=== PATIENT | female | born 1965 | race Caucasian/White ===

== ENCOUNTER 2016-08-19 16:24 | Inpatient (IN) | payer OTHER, BC ==
[~2016-08-19] VITALS: Ht 188 cm; Wt 87.5 kg
[2016-08-19 20:00] VITALS: BP 141/95
[2016-08-19 20:11] LABS: *URINE HCG, QUAL NEGATIVE
[2016-08-19 20:17] LABS: *AMPHETAMINE, URINE NEGATIVE (NEGATIVE); *BARBITURATE, URINE NEGATIVE (NEGATIVE); *CANNABINOID, URINE NEGATIVE (NEGATIVE); *COCCAINE, URINE NEGATIVE (NEGATIVE); *OPIATE, URINE NEGATIVE (NEGATIVE); *PHENCYCLIDINE SCREEN,URINE NEGATIVE (NEGATIVE)
[2016-08-19] MEDS ORDERED: MAG HYDROX/AL HYDROX/SIMETH 30 ML LIQUID UDC PO PRN (20:30)
[2016-08-19] MEDS ORDERED: ACETAMINOPHEN 325 MG TABLET PO PRN (20:30)
[2016-08-19] MEDS ORDERED: LORAZEPAM 1 MG TABLET PO PRN ×2 (20:30)
[2016-08-19] MEDS ORDERED: LOPERAMIDE HCL 2 MG CAPSULE PO PRN ×2 (20:30)
[2016-08-19] MEDS ORDERED: MAGNESIUM HYDROXIDE 30 ML LIQUID UDC PO PRN (20:30)
[2016-08-19] MEDS ORDERED: THIAMINE HCL 200 MG/2 ML VIAL IM ONE (20:30)
[2016-08-19] MEDS ORDERED: IBUPROFEN 400 MG TABLET PO PRN (20:30)
[2016-08-19] MEDS ORDERED: DICYCLOMINE HCL 20 MG TABLET PO PRN (20:30)
[2016-08-19] MEDS ORDERED: ONDANSETRON ODT 4 MG TAB.RAPDIS SL PRN (20:30)
[2016-08-19] MEDS ORDERED: LORAZEPAM 2 MG/1 ML VIAL IM PRN (20:30)
--- NOTE | 2016-08-19 20:30 | NUR ---
ADMISSION NOTE Pt is 51 year old male, admitted to [facility] 3rd floor on 08/19/16 at 1940. Skin and body check done in rm 317, no contraband found, skin intact. Urine collected and sent to lab for drug screen, as ordered. Pt alert, awake, oriented x 3; pt ambulatory with steady gait. Pt is a primary source of information. Pt reports NKA, NKFA. Pt repots his PCP is Dr Frank Reynoso, [place], [place]. Pt reports being admitted to ER in Jun 2016 for ETOH intoxication. Pt reports PMH of: (1) hypothyroidism - was diagnosed in 2002; (2) GERD - diagnosed in 2000; (3) IBS - diagnosed in 2000; (4) depression - diagnosed in 2005; (5) insomnia - diagnosed in 2005 . Past surgical hx - left shoulder repair surgery and C5-C6 reconstruction in 2011 (d/t chronic pain). Pt reported taking the following medications in home: 1. Synthroid -137 mcg - 1 tab daily PO, last taken 08/19/16 2. Spironolactone 50 mg - 1 tab daily PO, last taken 08/19/16 3. Nexium 22.3 mg - pt takes PRN, last taken 08/19/16 4. Aleve 220 mg - pt takes PRN for headache, unknown date of last intake 5. Loratadine 10 mg - pt takes prn for allergies, unknown date of last intake 6.Hydroco/APAP 10-325 - per pt, she took it "years ago" for shoulder pain 7. Oxycodone-APAP 5/325 - per pt, she took it "years ago" for shoulder pain 8. Daytime old and Flu (APAP 325mg, Dextromethorphan 10 mg/ Phenylephrine 5 mg) - pt takes prn for flu/ common cold, unknown date of last intake 9. Omeprazole 20.6 mg - pt takes PRN for GERD, unknown date of last intake 10. Ibuprofen 200 mg - pt takes prn for pain, unknown date of last intake 11. Systane eyedrops - pt takes prn for dry eyes, unknown date of last use 12. Neosporin oin - pt uses prn for skin abrasions, unknown date of last use. Per pt, he got admitted for ETOH dependence: 1. ETOH (wine) - pt reports she started to drink occasionally at age 15, reports "heavy" drinking from age 26; pt had multiple attempts to stay sober, relapsed on daily drinking in 2015; reports drinking 2-3 750 ml of wine daily, last drink on 08/19/16, 2 bottles of wine. Pt denies smoking tobacco or using other substances. Pt denies previous rehab/ detox admissions. Longest period of sobriety 5 years from [id number]. Pt presents aaox3, cooperative; is primary source of information, speech slugger, noted strong ETOH breath odor, yet information consistent. Denies SI/HI. Skin intact, warm, barely sweaty. Pt reports mild anxiety, educated on relaxation techniques, reports mild 2/10 headache. No tremors noted, pt denies tingling/ itching. CIWA score 4. Skin intact, warm. All extremities with full ROM. No SOB noted. Heart rate regular, no murmurs, pt denies chest pain, Cap refill < 3 sec. No edema noted. Bowel sounds present x 4, last BM 08/19/16; pt denies n/v/d. No urinary difficulties reported. Pt denies hx of seizures VS; temp 98.5, HR 109, RR 16, SPO2 97, BP 141/95, Ht 6'2"", Wt 193 lb. Pt oriented to room and unit, provided demonstration of equipment. Side rails up x 2, call light within reach, bed locked in lowest position. Dr Jones notified, awaiting for orders. Addendum: 08/20/16 at 0500 by ISRAEL TIM RN pt also reports taking Ambien of unknown dose for sleep, last taken 08/18/16
[2016-08-19 21:41] LABS: BASOPHILS # (AUTO) 0.1 K/uL (0.0-0.2); BASOPHILS % (AUTO) 1.4 % (0.0-2.0); EOSINOPHILS # (AUTO) 0.1 K/uL (0.0-0.7); EOSINOPHILS % (AUTO) 1.4 % (0.0-7.0); HEMATOCRIT 46.3 % (40.0-50.0); HEMOGLOBIN 15.1 g/dL (14.0-18.0); LYMPHOCYTES # (AUTO) 1.9 K/uL (0.8-4.8); LYMPHOCYTES % (AUTO) 49.8 % (20.5-51.5); MEAN CORPUSCULAR HGB CONC 33 g/dL (32.0-37.0); MEAN CORPUSCULAR VOLUME 92.1 fL (82.0-92.0); MONOCYTES # (AUTO) 0.5 K/uL (0.1-1.30); MONOCYTES % (AUTO) 12.5 % (0.0-11.0); NEUTROPHILS # (AUTO) 1.4 K/uL (1.8-8.9); NEUTROPHILS % (AUTO) 34.9 % (38.5-71.5); PLATELET COUNT (AUTO) 232 K/uL (150-450); RED BLOOD CELL COUNT(AUTO) 5.03 MIL/uL (4.70-6.10); RED CELL DISTRIBUTION WIDTH 13.9 % (11.5-14.5)
[2016-08-19 22:01] LABS: HIV-1 p24 ANTIGEN NON REACTIVE (NONREACTIVE); HIV-1/2 ANTIBODY NON REACTIVE (NONREACTIVE)
[2016-08-19 22:07] LABS: ALBUMIN 4.5 g/dL (3.4-5.0); BAND % (MANUAL) 2 % (0-10); BASOPHILS % (MANUAL) 1 % (0-2); BILIRUBIN,TOTAL 0.4 mg/dL (0.2-1.0); CALCIUM 8.6 mg/dL (8.5-10.1); CREATININE 0.9 mg/dL (0.6-1.3); EOSINOPHILS % (MANUAL) 1 % (0-8); LYMPHOCYTES % (MANUAL) 47 % (20-40); MONOCYTES % (MANUAL) 10 % (2-10); NEUTROPHILS % (MANUAL) 39 % (42-75); PLATELET ESTIMATE ADEQUATE; POTASSIUM 4.3 mmol/L (3.5-5.1); TOTAL PROTEIN, SERUM 8.5 g/dL (6.4-8.2)
[2016-08-19 22:08] LABS: THYROID STIMULATING HORMONE 0.316 mIU/mL (0.358-3.740)
--- NOTE | 2016-08-19 22:20 | NUR ---
PRN ZOFRAN Pt c/o nausea/ Administered Zofran 4 mg ODT prn. Will continue to monitor
--- NOTE | 2016-08-19 22:50 | NUR ---
PRN ATIVAN Pt c/o anxiety. mild nausea, noted bilat hand tremor, sweats. CIWA = 8. Administered prn Ativan 1 mg PO. Safety precautions in place.
--- NOTE | 2016-08-19 23:45 | NUR ---
REASSESSMENT Pt states nausea improved, reports decrease in anxiety, tremors not observable, CIWA score = 4. Will continue to monitor
[2016-08-20] VITALS: BP 125/87
[2016-08-20] MEDS: diphenhydrAMINE 50 MG CAPSULE PO PRN (00:28)
--- NOTE | 2016-08-20 00:30 | NUR ---
PRN BENADRYL Pt c/o insomnia. Administered Benadryl 50 mg PO prn as ordered. Safety precautions in place, will continue to monitor
--- NOTE | 2016-08-20 01:30 | NUR ---
REASSESSMENT Pt resting with eyes closed, RR unlabored. Side rails up x 2, bed in lowest position, call light within reach.
[2016-08-20 04:00] VITALS: BP 128/72
[2016-08-20] MEDS ORDERED: IBUP200C48 PO (06:11)
[2016-08-20] MEDS ORDERED: OMEP20TA68 PO (06:11)
[2016-08-20] MEDS ORDERED: LORA10TA50 PO (06:11)
[2016-08-20] MEDS ORDERED: NAPR220C15 PO (06:11)
[2016-08-20] MEDS ORDERED: ESOM20CA PO (06:11)
[2016-08-20] MEDS ORDERED: D ME PO (06:11)
[2016-08-20] MEDS ORDERED: LEVO137T24 PO (06:11)
[2016-08-20] MEDS ORDERED: HYDR-3657 PO (06:11)
[2016-08-20] MEDS ORDERED: ZOLP5TAB2 PO (06:11)
[2016-08-20] MEDS ORDERED: OXYC-162 PO (06:11)
[2016-08-20] MEDS ORDERED: EYEL1TOW2 TP (06:11)
[2016-08-20] MEDS ORDERED: SPIR50TA3 PO (06:11)
[2016-08-20] MEDS ORDERED: HYDR28CR45 TP (06:11)
--- NOTE | 2016-08-20 07:19 | NUR ---
END OF SHIFT NOTE Pt is 51 y o female, admitted on 08/19/16 for ETOH dependence. Pt reported drinking 2-3 750 ml bottles of wine daily for 2 yrs. Upon admission CIWA was 2, by 2230, pt started to c/o nausea, anxiety, tremors, prn Zofran was given for nausea and Ativan 1 mg for CIWA score of 8. Both were effective, CIWA decreased to 4 in 1 hr after medication administration. Pt was compliant, cooperative. VSS. Last CIWA 2 at 0400. Pt received prn Benadryl for sleep at 0030, was effective, pt slept for 5 hrs. Skin intact. PMH of hypothyroidism, GERD, IBS, depression, insomnia. Pt full code, regular diet, NKA. Fall precautions in place. Report endorsed to day shift nurse.
--- NOTE | 2016-08-20 07:20 | NUR ---
Start of Shift Notes: Received patient awake, alert and verbally responsive. Able to make her needs known. Oriented x 4. Respirations even and unlabored. No SOB noted. Skin warm and dry to touch. Abdomen soft and non-distended. BS (+) in all 4 quadrants. No complains of constipation or abdominal discomfort noted. Mild nausea noted. Able to tolerate PO fluids. No diarrhea reported. Bladder non-distended. No complains of dysuria noted. Patient noted tremulous even with arms not extended. Noted with moderate anxiety, fidgety and with restlessness. Also noted with clammy skin related to sweats. Patient is a 51 year old female admitted for ETOh dependence who was placed on PRNs only at this time. Has past medical hx of IBS, deprsesion, insomnia, GERD and IBS. NKA. FULL CODE. Regular diet. On fall and seizure precautions. Educated patient on her current plan of care for the day. Requested for her AM meds to be given at this time despite education. Notified MD, per MD, OK to give. Encouraged oral fluid intake and encouraged group participation to learn new skills to prevent relapse. Will continue to monitor closely.
[2016-08-20] MEDS: THIAMINE HCL 100 MG TABLET PO SCH (07:28)
[2016-08-20] MEDS: FOLIC ACID 1 MG TABLET PO SCH (07:28)
[2016-08-20] MEDS: MULTIVITAMINS,THERAPEUTIC TABLET PO SCH (07:28)
--- NOTE | 2016-08-20 07:30 | NUR ---
Ativan 2 mg PO given and 0900 meds: Patient noted with CIWA 19. Noted with tremors even with arms not extended. Also noted with sweats, moderate anxiety and agitation. Pulse 100. BP 111/86. Patient requested for all her due meds to be give at this time. Notified MD. Per , krysta to give and monitor CIWA 1 hour after Ativan. Will continue to monitor closely.
[2016-08-20 08:00] VITALS: BP 111/86
--- NOTE | 2016-08-20 08:30 | NUR ---
Re-assessment: CIWA 14. Less tremors noted at rest, less agitation and less anxiety noted. Oral fluids encouraged. PRN Ativan 2 mg PO was effective in reducing her withdrawal symptoms.
[2016-08-20] MEDS ORDERED: TUBERCULIN,PURIF.PROT.DERIV. 5 TU/0.1 ML TEST ID ONE (09:00)
[2016-08-20] MEDS ORDERED: Medication Not On Formulary EA (Loratadine 10 MG) PO PRN (10:30)
[2016-08-20] MEDS ORDERED: HYDROCORTISONE 1% CREAM 30 GM TUBE TP PRN (10:30)
[2016-08-20] MEDS ORDERED: LORATADINE 10 MG TABLET PO PRN (10:45)
--- NOTE | 2016-08-20 10:56 | NUR ---
MD Visit: Dr. Jones in to see patient at this time. 5-day Ativan taper will be started today at 1300. Reported to MD patient's TSH of 0.316L. New orders received. MD reconciled patient's meds.
[2016-08-20 12:00] VITALS: BP 119/83
[2016-08-20] MEDS: LORAZEPAM 1 MG TABLET PO SCH ×3 (12:04→20:32)
[2016-08-20] MEDS: ESCITALOPRAM OXALATE 10 MG TABLET PO SCH (12:04)
[2016-08-20] MEDS: PANTOPRAZOLE SODIUM 40 MG TABLET.DR PO PRN (12:08)
--- NOTE | 2016-08-20 12:09 | NUR ---
Protonix 40 mg PO given: Patient noted with complains of heartburn. Offered Mylanta but refused. Medicated patient with Protonix 40 mg PO as ordered. Will monitor for effectiveness.
--- NOTE | 2016-08-20 13:08 | NUR ---
Re-assessment: Per patient, PRN Protonix was effective in relieving heartburn.
[2016-08-20] MEDS: GABAPENTIN 300 MG CAPSULE PO SCH ×2 (14:43→20:32)
[2016-08-20 16:00] VITALS: BP 119/81
--- NOTE | 2016-08-20 18:37 | NUR ---
End of Shift Notes: Patient is a 51 year old female admitted for ETOH dependence who was placed on a 5 day Ativan taper as ordered. No adverse reactions noted. Taper started today. Has past medical hx of hypothyroidism, GERD, IBS, insomnia and depression. Prior to admission, patient was using 2 to 3 bottles of 750cc wine daily x 2 years. VS monitored closely q 4 hours. No significant abnormalities noted. WIthdrawal symptoms were closely monitored. Initial CIWA 19 - patient presented with gross tremors, anxiety, sweating, agitation, fidgeting and restlessness. Medicated patient with Ativan 2 mg PO at 0730 due to CIWA 19 with help after 1 hour. Last CIWA 8. Per patient, Ativan has been helping her with her withdrawal symptoms. Patient was unable to participate in group and therapy sessions during the day. Compliant with care and treatment. All needs met and attended. Will continue to monitor closely.
--- NOTE | 2016-08-20 19:15 | NUR ---
Start of Shift Patient Received. Patient is in activities room participating in group meeting. Patient is a 51 year old female, admitted on 08/19/16 for ETOH Dependence, under the care of Dr. Jones, she is currently receiving a 5 day Ativan taper. Patient verbalizes no known allergies, wishes to be full code, following a regular diet, skin intact, on fall precautions. Patients past medical history of Gerd, IBS, Hypothyroidism, depression, and insomnia. Per endorsement, patient noted with a CIWA of 19 and given PRN Ativan 2mg for increased signs and symptoms. Patient continues on 5 day Ativan taper and is tolerating well. All needs attended to promptly. Will continue plan of care as ordered.
[2016-08-20 20:28] VITALS: BP 135/94
--- NOTE | 2016-08-20 21:00 | NUR ---
PRN Medication Administration Patient verbalizing increased heartburn. PRN Maalox given with routine medications. Will monitor for effectiveness.
--- NOTE | 2016-08-20 23:00 | NUR ---
PRN Medication Reassessment Patient able to verbalize heartburn subsided. PRN Maalox noted to be effective.
[2016-08-21 00:45] VITALS: BP 126/79
[2016-08-21 04:20] VITALS: BP 126/96
[2016-08-21] MEDS: LEVOTHYROXINE SODIUM 137 MCG TABLET PO SCH (06:20)
--- NOTE | 2016-08-21 07:05 | NUR ---
End of Shift Patient is in bed sleeping. Breathing even and non labored. No signs of pain or discomfort noted. Patient is a 51 year old female, admitted on 08/19/16 for ETOH Dependence, under the care of Dr. Jones, she is currently receiving a 5 day Ativan taper. Patient verbalizes no known allergies, wishes to be full code, following a regular diet, skin intact, on fall precautions. Patients past medical history of Eleuterio, IBS, Hypothyroidism, depression, and insomnia. Patient was given PRN Maalox for increased heartburn with medication noted to be effective. All needs attended to promptly. Will endorse to continue plan of care as ordered.
[2016-08-21 07:25] LABS: THYROID STIMULATING HORMONE 0.754 mIU/mL (0.358-3.740)
[2016-08-21 08:00] VITALS: BP 136/99
--- NOTE | 2016-08-21 08:00 | NUR ---
START OF SHIFT NOTE: REPORT RECEIVED FROM INFORMATICS ANALYST NURSE. PT IS A 51YO FEMALE ADMITTED ON 08/19/16 FOR MEDICALLY SUPERVISED WITHDRAWAL: PT REPORTS DRINKING 2-3 750ML BOTTLES OF WINE DAILY FOR 1 YEAR. PT IS ON DAY 2 OF A 5-DAY ATIVAN TAPER. LAST INFORMATICS ANALYST CIWA=8. PRN MAALOX WAS GIVEN THROUGHOUT THE NIGHT FOR GERD. PT IS ON REGULAR DIET. PT REPORTS PAST MED HX OF IBS, HYPOTHYROID, DEPRESSION, AND INSOMNIA. PT REPORTS NKA AND IS A FULL CODE. PT IS CURRENTLY IN BED AND REPORTS FATIGUE. ALL NEEDS ATTENDED AND MET AT THIS TIME. WILL CONTINUE TO MONITOR.
[2016-08-21 08:11] LABS: ALBUMIN 3.5 g/dL (3.4-5.0); BILIRUBIN,DIRECT 0.1 mg/dL (0.0-0.2); BILIRUBIN,TOTAL 0.7 mg/dL (0.2-1.0); TOTAL PROTEIN, SERUM 6.9 g/dL (6.4-8.2)
[2016-08-21] MEDS: ESCITALOPRAM OXALATE 10 MG TABLET PO SCH (09:44)
[2016-08-21] MEDS: SPIRONOLACTONE 50 MG TABLET PO SCH (09:44)
[2016-08-21] MEDS: LORAZEPAM 1 MG TABLET PO SCH ×3 (09:44→21:22)
[2016-08-21] MEDS: MULTIVITAMINS,THERAPEUTIC TABLET PO SCH (09:44)
[2016-08-21] MEDS: FOLIC ACID 1 MG TABLET PO SCH (09:44)
[2016-08-21] MEDS: GABAPENTIN 300 MG CAPSULE PO SCH ×3 (09:44→21:21)
[2016-08-21] MEDS: THIAMINE HCL 100 MG TABLET PO SCH (09:44)
[2016-08-21 12:00] VITALS: BP 132/93
[2016-08-21] MEDS: CLONIDINE HCL 0.1 MG TABLET PO PRN (14:28)
--- NOTE | 2016-08-21 14:28 | NUR ---
PRN Clonidine: Pt c/o anxiety and noted to be diaphoretic. Administered PRN Clonidine as ordered. Will continue to monitor.
--- NOTE | 2016-08-21 15:30 | NUR ---
Reassessment: Pt is in bed with eyes closed. Respirations are even and unlabored. No s/s of acute distress noted. PRN Clonidine effective. Will continue to monitor.
[2016-08-21 16:00] VITALS: BP 115/86
[2016-08-21] MEDS: HYDROXYZINE PAMOATE 25 MG CAPSULE PO PRN (18:14)
--- NOTE | 2016-08-21 18:15 | NUR ---
PRN Vistaril: Pt c/o increased anxiety. Administered PRN Vistaril as ordered. Will continue to monitor.
--- NOTE | 2016-08-21 19:15 | NUR ---
Start of Shift Patient Received. Patient is in activities room participating in group meeting. Patient is a 51 year old female, admitted on 08/19/16 for ETOH Dependence, under the care of Dr. Jones, and is currently receiving a 5 day Ativan taper. Patient verbalizes no known allergies, wishes to be full code, following a regular diet, skin intact, on fall precautions. Patients past medical history of Gerd, IBS, Hypothyroidism, depression, and insomnia. Per endorsement, patient was given PRN Vistaril and Clonidine with medication noted to be effective. All needs attended to promptly. Will continue plan of care as ordered.
--- NOTE | 2016-08-21 19:20 | NUR ---
Reassessment: Pt is in bed with eyes closed. Respirations are even and unlabored. No s/s of acute distress noted. PRN Vistaril effective. Pt endorsed to pad extractor tender nurse.
--- NOTE | 2016-08-21 19:34 | NUR ---
END OF SHIFT NOTE: PT IS A 51YO FEMALE ADMITTED TO [facility] ON 08/19/16 FOR MEDICALLY SUPERVISED WITHDRAWAL FROM ETOH. PT REPORTS DRINKING 2-3 750ML BOTTLES OF WINE DAILY FOR 1 YEAR. PT CONTINUES ON DAY 2 OF A 5-DAY ATIVAN TAPER. LAST CIWA=6; SCHEDULED ATIVAN TAPER EFFECTIVELY MANAGED S/S OF WITHDRAWAL, IN ADDITION TO PRN CLONIDINE AND PRN VISTARIL FOR ANXIETY. PT IS ON REGULAR DIET. PT REPORTS PAST MED HX OF IBS, HYPOTHYROID, DEPRESSION, AND INSOMNIA. PT REPORTS NKA AND IS A FULL CODE. PT CONSUMED 100% OF ALL MEALS, HAD INTAKE 2565ML, OUTPUT URINE X4 AND STOOL X1. PT ENDORSED TO FURNACE INSTALLER HELPER NURSE.
[2016-08-21 21:19] VITALS: BP 119/84
[2016-08-21] MEDS: PANTOPRAZOLE SODIUM 40 MG TABLET.DR PO PRN (21:22)
[2016-08-21] MEDS: diphenhydrAMINE 50 MG CAPSULE PO PRN (21:22)
--- NOTE | 2016-08-21 21:30 | NUR ---
PRN Medication Administration Patient verbalizing increase heartburn and inability of falling asleep. PRN Benadryl and Protonix administered with routine medications. Will continue to monitor for effectiveness.
--- NOTE | 2016-08-21 23:00 | NUR ---
PRN Medication Reassessment Patient noted in bed sleeping. Breathing even and non labored. No signs of pain or discomfort noted. PRN Benadryl and Protonix noted to be effective. Will continue to monitor.
--- NOTE | 2016-08-22 00:35 | NUR ---
Vitals and CIWA Patient refused 0000 vitals prior to bed. Patient states "I have a difficult time sleeping so if Im sleeping then Ill pass." Patient noted in bed sleeping. Breathing even and non labored. No signs of pain or discomfort noted. Patient respirations noted to be 16. CIWA not able to be completed as per order. Will continue to monitor. Addendum: 08/22/16 at 0235 by MIKHAIL GLEZ LVN Amended: Links added.
--- NOTE | 2016-08-22 04:15 | NUR ---
Vitals and CIWA Patient refused 0400 vitals prior to bed. Patient states "I have a difficult time sleeping so if Im sleeping then Ill pass." Patient noted in bed sleeping. Breathing even and non labored. No signs of pain or discomfort noted. Patient respirations noted to be 16. CIWA not able to be completed as per order. Will continue to monitor. Addendum: 08/22/16 at 0416 by MIKHAIL GLEZ LVN Amended: Links added.
[2016-08-22 05:24] VITALS: BP 131/101
[2016-08-22] MEDS: CLONIDINE HCL 0.1 MG TABLET PO PRN (05:25)
--- NOTE | 2016-08-22 05:34 | NUR ---
PRN Medication Administration Patient noted awake and verbalizing increased signs and symptoms of withdrawal including anxiety, sweats and chills. Patient also noted with a BP of 131/101. PRN Clonidine administered. Will continue to monitor for effectiveness.
--- NOTE | 2016-08-22 06:15 | NUR ---
PRN Medication Reassessment Vitals reassessed and BP noted 127/91. Patient able to verbalize "I feel better now." PRN Clonidine noted to be effective. Will continue to monitor.
[2016-08-22 06:18] VITALS: BP 127/91
[2016-08-22] MEDS: LEVOTHYROXINE SODIUM 137 MCG TABLET PO SCH (06:19)
--- NOTE | 2016-08-22 07:16 | NUR ---
End of Shift Patient is in bed awake, alert and verbally responsive. Breathing even and non labored. No signs of pain or discomfort noted. Patient is a 51 year olf female, admitted on 08/19/16 for ETOH Dependence, under the care of Dr. Jones, she is currently receiving a 5 day Ativan taper. Patient verbalizes no known allergies, wishes to be full code, following a regular diet, skin intact, on fall precautions. Patients past medical history of Gerd, IBS, Hypothyroidism, depression, and insomnia. Patient was given PRN Benadryl, Protonix, and Clonidine. All PRN medications noted to be effective. All needs attended to promptly. Will endorse to continue plan of care as ordered.
--- NOTE | 2016-08-22 07:30 | NUR ---
Start Of Shift Received 51 year old female, admitted on 08/19/16 for ETOH Dependence. Pt is full code, regular diet on fall precautions, denies food or drug allergies. Pt is she is currently receiving a 5 day Ativan taper tolerating well. Patient reports past medical history of GERD, IBS, Hypothyroidism, depression, and insomnia. Patient was given PRN Benadryl, Protonix, and Clonidine. All PRN medications noted to be effective per revenue cycle manager nurse. Her last CIWA was a 7 taken at 2100. Pt slept a total of 7 hours last night. all safety measures in place, bed locked in lowest position, will continue to monitor and provide support.
[2016-08-22 08:00] VITALS: BP 103/65
[2016-08-22] MEDS: MULTIVITAMINS,THERAPEUTIC TABLET PO SCH (09:56)
[2016-08-22] MEDS: ESCITALOPRAM OXALATE 10 MG TABLET PO SCH (09:56)
[2016-08-22] MEDS: THIAMINE HCL 100 MG TABLET PO SCH (09:56)
[2016-08-22] MEDS: FOLIC ACID 1 MG TABLET PO SCH (09:56)
[2016-08-22] MEDS: SPIRONOLACTONE 50 MG TABLET PO SCH (09:56)
[2016-08-22] MEDS: LORAZEPAM 1 MG TABLET PO SCH ×4 (09:56→20:44)
[2016-08-22] MEDS: GABAPENTIN 300 MG CAPSULE PO SCH ×3 (09:56→20:46)
--- NOTE | 2016-08-22 10:37 | NUR ---
Endorsed Pt endorsed, VS WNL last CIWA 6 @0800, pt is in stable condition. all safety measures.
--- NOTE | 2016-08-22 10:40 | NUR ---
ASSUMED CARE FOR PT. WILL CONTINUE TO MONITOR AND PROVIDE SUPPORT.
[2016-08-22 12:00] VITALS: BP 119/88
[2016-08-22 16:00] VITALS: BP 125/90
--- NOTE | 2016-08-22 18:40 | NUR ---
END OF SHIFT: PT CONTINUES ON ATIVAN TAPER. LAST CIWA 3. SHE STATES THAT SHE FEELS ANXIOUS INTERMITTENTLY.HER HANDS ARE TREMULOUS. HER GAIT IS STEADY. SHE PRESENTS WITH GUARDED AFFECT AND ANXIOUS MOOD. SHE ALSO REPORTS THAT THE ATIVAN AND GABAPENTIN MAKE HER FEEL A BIT TIRED. SHE ISOLATED IN ROOM MOST OF SHIFT RESTING. ENCOURAGED PT TO ATTEND GROUPS TOMORROW. BED LOCKED AND IN LOWEST POSITION. CALL SOLIS IN REACH.WILL PASS SHIFT REPORT TO ONCOMING NURSE.
--- NOTE | 2016-08-22 19:30 | NUR ---
START OF SHIFT NOTE Received report from day shift nurse. Pt is 51 y o female, admitted on 08/19/16 for ETOH (2-3 750 ml bottles of wine daily for 2 yrs), Pt is on 5 day Ativan taper started 08/20/16. Pt is in room, aaox4. Pt reports mild anxiety, sweats, mild tingling of BUE. Radial pulses strong bilat, cap refill<3 sec. Skin intact, with minimal sweats noted. No tremors noted. Lung sounds clear bilat, heart rate regular. Bowel sounds active x 4, pt denies n/v/d. Pt denies urinary difficulties. PMH of hypothyroidism, GERD, depression, insomnia. Pt NKA, full code, regular diet. Pt is on fall and seizure precautions. Side rails up x 2, call light within reach, bed locked in lowest position. Will continue with plan of care.
[2016-08-22 20:00] VITALS: BP 122/93
[2016-08-22] MEDS: diphenhydrAMINE 50 MG CAPSULE PO PRN (20:44)
--- NOTE | 2016-08-22 20:45 | NUR ---
PRN BENADRYL, NEURONTIN REFUSAL Pt reports insomnia, administered Benadryl 50 mg PO prn as ordered. Pt refused scheduled neurontin, states "it makes me feel drowsy', explained risk and benefits, medication offered x 3, pt still refused. Fall and seizure precautions in place, will continue to monitor
--- NOTE | 2016-08-22 22:00 | NUR ---
REASSESSMENT Pt sleeping soundly, RR even and unlabored at 14 breaths per minute. Side rails up x 2, call light within reach. Will continue to monitor
--- NOTE | 2016-08-23 | NUR ---
VS, CIWA Pt refused VS and CIWA assessment, state she wants to sleep and not to be bothered. Pt asleep, RR even and unlabored at 19breaths per minute. Side rails up x 2, call light within reach, bed locked in lowest position. Will continue to monitor Addendum: 08/23/16 at 0200 by ISRAEL TIM RN Amended: Links added.
[2016-08-23 03:09] LABS: HEPATITIS B CORE AB, IgM Negative (Negative); HEPATITIS B SURFACE AG Negative (Negative)
--- NOTE | 2016-08-23 04:00 | NUR ---
VS, CIWA Pt refused VS and CIWA assessment, state she wants to sleep and not to be bothered. Pt asleep, RR even and unlabored at 18 breaths per minute. Side rails up x 2, call light within reach, bed locked in lowest position. Will continue to monitor Addendum: 08/23/16 at 0510 by ISRAEL TIM RN Amended: Links added.
[2016-08-23] MEDS: LEVOTHYROXINE SODIUM 137 MCG TABLET PO SCH (06:44)
--- NOTE | 2016-08-23 07:20 | NUR ---
END OF SHIFT NOTE Pt is 51 y o female, admitted on 08/19/16 for ETOH (2-3 750 ml bottles of wine daily for 2 yrs), Pt is on day 4 of 5 day Ativan taper started 08/20/16. Withdrawal s/s included mild anxiety, sweating, and tingling of arms; pt stated that taper medication help with withdrawal s/s management. VSS. Last CIWA 3 at 1999. Pt refused Neurontin at 2099, states is "makes her drowsy", pt requested prn Benadryl for sleep instead, was administered at 2044. Pt slept for 5 hrs. PO intake 2260 ml, urination x 3, BM x 1. PMH of hypothyroidism, GERD, depression, insomnia. Pt NKA, full code, regular diet. Pt is on fall and seizure precautions. Report endorsed to day shift nurse.
--- NOTE | 2016-08-23 07:45 | NUR ---
START OF SHIFT Rcvd client in room, she is A/O x 4, she presents with anxious and depressed mood, flat affect, she reports chills, fatigue, and leg restlessness. Encouraged increased fluids as tolerated. Encouraged group therapy attendance. Per production shift supervisor nurse, client is a 51 year old female admitted to [facility] on 08/19/16 for withdrawal from Alcohol. She is on a 5 day Ativan taper to manage s/s of w/d. Last CIWA 3 @ 1999, she had an uneventful night, slept 5 hrs. She reports PMH Hypothyroidism, GERD, Depression, Insomnia, Allergic rhinitis. Past Surgical history, Left shoulder surgery, Cervical spinal surgery. She denies any induced-seizure withdrawal. She is full code, regular diet, reports NKA. Client is on seizure precautions. Side rails up/padded x 2, call light within reach, bed locked in lowest positions. Will continue with plan of care.
[2016-08-23] MEDS: LORAZEPAM 1 MG TABLET PO SCH ×3 (08:09→20:09)
[2016-08-23] MEDS: ESCITALOPRAM OXALATE 10 MG TABLET PO SCH (08:09)
[2016-08-23] MEDS: MULTIVITAMINS,THERAPEUTIC TABLET PO SCH (08:09)
[2016-08-23] MEDS: THIAMINE HCL 100 MG TABLET PO SCH (08:09)
[2016-08-23] MEDS: FOLIC ACID 1 MG TABLET PO SCH (08:09)
[2016-08-23] MEDS: SPIRONOLACTONE 50 MG TABLET PO SCH (08:11)
[2016-08-23] MEDS: GABAPENTIN 300 MG CAPSULE PO SCH ×2 (08:13→15:00)
[2016-08-23 08:14] VITALS: BP 116/89
[2016-08-23 12:00] VITALS: BP 123/84
--- NOTE | 2016-08-23 12:15 | NUR ---
START OF SHIFT Rcvd client in room, she is A/O x 4, she presents with anxious and depressed mood, flat affect, she reports chills, fatigue, and leg restlessness. Encouraged increased fluids as tolerated. Encouraged group therapy attendance. Per power and recovery shift engineer nurse, client is a 51 year old female admitted to [facility] on 08/19/16 for withdrawal from Alcohol. She is on a 5 day Ativan taper to manage s/s of w/d. Last CIWA @ 1999, she had an uneventful night, slept 5 hrs. She reports PMH Hypothyroidism, GERD, Depression, Insomnia, Allergic rhinitis. Past Surgical history, Left shoulder surgery, Cervical spinal surgery. She denies any induced-seizure withdrawal. She is full code, regular diet, reports NKA. Client is on seizure precautions. Side rails up/padded x 2, call light within reach, bed locked in lowest positions. Will continue with plan of care. Addendum: 08/23/16 at 1218 by JUNIOR SIEGEL RN DUPLICATE ENTRY
[2016-08-23 16:00] VITALS: BP 133/86
--- NOTE | 2016-08-23 19:27 | NUR ---
END OF SHIFT NOTE Client is 51 y o female, admitted on 08/19/16 for ETOH (2-3 750 ml bottles of wine daily for 2 yrs), Pt is on day 4 of 5 day Ativan taper started 08/20/16. Withdrawal s/s included mild anxiety, sweating, and tingling of arms, Last CIWA 4 @ 1600. Adequate intake and output. PMH of hypothyroidism, GERD, depression, insomnia. Pt NKA, full code, regular diet. She is on fall and seizure precautions. Endorsed to incoming nurse.
[2016-08-23 20:00] VITALS: BP 118/86
--- NOTE | 2016-08-23 20:00 | NUR ---
2000 Patient received awake, alert and lying in low semi-fowlers position of comfort, watching television. Patient responds to nurse's greeting and introduction with a smile and, " Hi, I'm doing all right". Patient is oriented to person, place, day, date and her situation. reoriented to time. Patient's color is pink and her skin is warm, dry and intact. Patient's lung sounds are clear bilaterally and active bowel sounds are noted X 4 abdominal Quads, per auscultation. Patient states that she has been eating and taking fluids ad bailey, as best she can, and trying to consistently go to [employer] groups, though she 'did not feel up to' attending PM group tonight. Vital signs are: 98.3-94-18 118/86, O2 Sat 97%, CIWA 2. Patient offer no requests or complaints at this time. Patient was admitted on 08/19/16 for Alcohol withdrawal and she is currently on a 5-Day Ativan medication taper, which she has apparently been tolerating well so far. Fall/Seizure precautions continue. Bed is locked and in lowest position, bed rails are up X 2 and call light within patient's easy reach.
[2016-08-23] MEDS: PANTOPRAZOLE SODIUM 40 MG TABLET.DR PO PRN (20:09)
--- NOTE | 2016-08-23 20:09 | NUR ---
PRN MEDICATION: Prn Protonix 40 mg p.o. given per patient's request for her c/o 'gerd-like feeling'.
--- NOTE | 2016-08-23 21:09 | NUR ---
REASSESSMENT PRN MEDICATION: Patient awake and states, " Oh, you caught me eating M&M's". Patient states that her gerd-like feeling is 'pretty much gone now'.
--- NOTE | 2016-08-24 | NUR ---
Patient refused V/S, CIWA to be done at this time.
--- NOTE | 2016-08-24 04:00 | NUR ---
Patient refused V/S, CIWA to be done at this time.
--- NOTE | 2016-08-24 06:30 | NUR ---
0630 Patient slept at total of 7 hours and she had 2 voids and 1 stool at bathroom. Total intake was 1,210 ml p.o. Prn medication given noted separately per floor protocol. V/SS afebrile, CIWA 2. Patient's overall mood/affect when she is awake, is somewhat flat, guarded, however she is verbally appropriate when interacting with [facility] staff. Patient is presently resting comfortably in stable condition. Eyes closed and respirations regular, unlabored at 14.
[2016-08-24] MEDS: LEVOTHYROXINE SODIUM 137 MCG TABLET PO SCH (07:08)
--- NOTE | 2016-08-24 07:45 | NUR ---
START OF SHIFT Pt is a 51 yr old female, AA&Ox3. Pt was admitted on 08/19/16 for ETOH Dependence and is on 5 day Ativan taper as ordered. Medication carter well. Pt is full code, regular diet and NKA. Pt reports of PMH of GERD, IBS, Hypothyroidism, Depression and Insomnia. Pt received Protonix PRN during the night. Medication was effective. Pt slept for 7 hrs. Last CIWA score was 2. Pt is currently in bed resting with respirations even and unlabored. No acute distress noted. Skin is intact, warm and dry to touch. No tremor seen or felt. Pt denies any n/v at this time. Encouraged increase fluid intake. Safety precautions observed. Call light is within reach. Will continue to monitor.
[2016-08-24 08:00] VITALS: BP 111/72
[2016-08-24] MEDS: ESCITALOPRAM OXALATE 10 MG TABLET PO SCH (08:32)
[2016-08-24] MEDS: FOLIC ACID 1 MG TABLET PO SCH (08:32)
[2016-08-24] MEDS: MULTIVITAMINS,THERAPEUTIC TABLET PO SCH (08:32)
[2016-08-24] MEDS: SPIRONOLACTONE 50 MG TABLET PO SCH (08:33)
[2016-08-24] MEDS: THIAMINE HCL 100 MG TABLET PO SCH (08:33)
--- NOTE | 2016-08-24 08:43 | NUR ---
MEDICATION REFUSED Pt refused to take Ativan 1mg PO as scheduled at 0900. Pt states, "I'm done with withdrawals". Pt was educated on the importance of medication. Pt was renee to verbalize understanding but continue to refuse.
[2016-08-24] MEDS ORDERED: LORAZEPAM 1 MG TABLET PO SCH (09:00)
[2016-08-24 12:00] VITALS: BP 118/76
--- NOTE | 2016-08-24 12:06 | NUR ---
MD COMMUNICATION Pt refused to take Ativan as scheduled at 0900. Pt states, "I am not withdrawing". Discussed with Dr. Jones with new order to discontinue Ativan taper. New order noted and carried out.
[2016-08-24 16:00] VITALS: BP 118/89
[2016-08-24 17:51] LABS: *AMPHETAMINE, URINE NEGATIVE (NEGATIVE); *BARBITURATE, URINE NEGATIVE (NEGATIVE); *CANNABINOID, URINE NEGATIVE (NEGATIVE); *COCCAINE, URINE NEGATIVE (NEGATIVE); *OPIATE, URINE NEGATIVE (NEGATIVE); *PHENCYCLIDINE SCREEN,URINE NEGATIVE (NEGATIVE)
--- NOTE | 2016-08-24 19:16 | NUR ---
END OF SHIFT Pt is a 51 yr old female, AA&Ox3. Pt was admitted on 08/19/16 for ETOH Dependence and is on 5 day Ativan taper as ordered. Medication carter well. Pt is full code, regular diet and NKA. Pt reports of PMH of GERD, IBS, Hypothyroidism, Depression and Insomnia. Pt refused to take Ativan 1mg as scheduled at 0900. was made aware. Pt has been attending some group sessions offered during the day. No acute distress noted. Skin is intact, warm and dry to touch. No tremor seen or felt. Pt denies any n/v. No PRN's were given during the day. Last CIWA score was 2 at 1600. Pt is to be discharged tomorrow to [facility]. Urine drug screen is complete. Encouraged increase fluid intake. Safety precautions observed. Call light is within reach.
[2016-08-24 20:00] VITALS: BP 109/87
--- NOTE | 2016-08-24 20:30 | NUR ---
2030 Patient received awake, alert and just returning from the bathroom to her bed. Gait is steady. Patient responds to nurse's greeting with a smile and, " I'm leaving tomorrow and I hope I never have to see you again". Patient then begins to laugh softly. Patient is oriented to person, place, day, date and her personal situation. Reoriented to time. Patient's color is pink and her skin is clean, warm, dry and intact. Lung sounds are clear bilaterally per auscultation. Patient states that she is "feeling good" and has been "doing everything that has been asked" of her to do here at [facility]. Patient continues to eat and take fluids ad bailey and she is denying any discomfort at this time. Vital signs are: 97.9-90-16 109/87, O2 Sat 98%, CIWA 2. Patient was admitted on 08/19/16 for Alcohol withdrawal and 5-Day Ativan medication taper has been completed. Patient moves all her extremities fully WNL and she offers no requests or c/o any pain or other discomforts at this time. Bed is locked and in lowest position, Bed rails are up X 2 and call light within patient's easy reach.
[2016-08-24] MEDS: diphenhydrAMINE 50 MG CAPSULE PO PRN (21:42)
--- NOTE | 2016-08-24 21:42 | NUR ---
PRN MEDICATIONS: Prn Benadryl 50 mg p.o. given for patient's request for sleep medication and Prn Motrin 400 mg p.o. given for patient's c/o lower legs and feet muscle pain/ cramps, 6-7/10 pain scale.
[2016-08-24] MEDS: HYDROXYZINE PAMOATE 25 MG CAPSULE PO PRN (21:43)
--- NOTE | 2016-08-24 21:43 | NUR ---
PRN MEDICATION: Prn Vistaril 50 mg p.o. given for patient's c/o anxiety.
[2016-08-24] MEDS: PANTOPRAZOLE SODIUM 40 MG TABLET.DR PO PRN (21:57)
--- NOTE | 2016-08-24 21:57 | NUR ---
PRN MEDICATION: Prn Protonix 40 mg p.o. given per patient's request for " gerd-like feeling in upper abdomen".
--- NOTE | 2016-08-24 22:50 | NUR ---
REASSESSMENT PRN MEDICATIONS: Patient is sleeping soundly and comfortably, with eyes closed and deep, quiet, even, unlabored respirations not 14.
--- NOTE | 2016-08-25 | NUR ---
Patient requested at 2029 that V/S not be done at this time. Patient is sleeping at this time, CIWA deferred.
--- NOTE | 2016-08-25 04:00 | NUR ---
Patient requested at 2029 that V/S not be done at this time. Patient is sleeping soundly, CIWA deferred.
--- NOTE | 2016-08-25 06:30 | NUR ---
0630 Patient slept a total of 7 hours and she had 3 voids and 1 stool. Total intake was 1,535 ml p.o. Prn medications given noted separately per floor protocol. V/SS afebrile, CIWA 1. Patient is presently sleeping comfortably in stable condition. Respirations are even, unlabored at 14.
--- NOTE | 2016-08-25 07:15 | NUR ---
start of shift note: received pt from night assistant nurse pt is in stable condition no s/s of pain or discomfort. pt is admitted to [facility] for ETOH withdrawal/dependence. pt is set for discharge today. will assist pt in discharging and will continue to monitor pt for any changes.
[2016-08-25] MEDS: LEVOTHYROXINE SODIUM 137 MCG TABLET PO SCH (07:49)
[2016-08-25] MEDS: MULTIVITAMINS,THERAPEUTIC TABLET PO SCH (09:13)
[2016-08-25] MEDS: SPIRONOLACTONE 50 MG TABLET PO SCH (09:13)
[2016-08-25] MEDS: THIAMINE HCL 100 MG TABLET PO SCH (09:13)
[2016-08-25] MEDS: ESCITALOPRAM OXALATE 10 MG TABLET PO SCH (09:13)
[2016-08-25] MEDS: FOLIC ACID 1 MG TABLET PO SCH (09:13)
--- NOTE | 2016-08-25 09:30 | NUR ---
discharge note: pt left the unit in stable condition no s/s of pain, discomfort or any withdrawal symptoms. pt left with all personal belongings. pt teaching administered and pt verbalized understanding. V/S WNL. pt will be transferred to treatment via private car
== END 2016-08-25 09:30 | disposition home or self-care (01) | DRG 895 ==
LOC: SRC 18:49 → EDSEX 18:49
PROVIDERS: ADMIT Internal Medicine; ATTEND Internal Medicine
PROC: HZ2ZZZZ Detoxification Services for Substance Abuse Treatment (ICD-10-PCS; principal; 2016-08-19)
PROC: HZ31ZZZ Individual Counseling for Substance Abuse Treatment, Behavioral (ICD-10-PCS; 2016-08-22)
DX: F10.230 Alcohol dependence with withdrawal, uncomplicated (principal); F32.1 Major depressive disorder, single episode, moderate; K70.10 Alcoholic hepatitis without ascites; Y90.9 Presence of alcohol in blood, level not specified; E03.9 Hypothyroidism, unspecified; E07.81 Sick-euthyroid syndrome; K21.9 Gastro-esophageal reflux disease without esophagitis; Z81.1 Family history of alcohol abuse and dependence; Z79.899 Other long term (current) drug therapy; F17.210 Nicotine dependence, cigarettes, uncomplicated
CPT/HCPCS: 36415; 80307; 83690; 83735; 84443; 84703; 85025; 86580; 86705; 87340; 87806; A4663; G6040-TC; J3411; Q0162; Q0163

== ENCOUNTER 2017-01-22 23:21 | Inpatient (IN) | payer OTHER, BC ==
[~2017-01-22] VITALS: Ht 188 cm; Wt 82.6 kg
[~2017-01-22 23:21] MED LIST: D ME PO; ESOM20CA PO; EYEL1TOW2 TP; HYDR28CR45 TP; IBUP200C76 PO; LEVO137T24 PO; LORA-588 PO; NAPR220C15 PO; SPIR50TA3 PO
[2017-01-23] VITALS (7 sets, daily range): BP systolic 109–142; BP diastolic 78–95
[2017-01-23] MEDS ORDERED: IBUPROFEN 400 MG TABLET PO PRN
[2017-01-23] MEDS ORDERED: ONDANSETRON 4 MG/2 ML VIAL IM PRN
[2017-01-23] MEDS ORDERED: CLONIDINE HCL 0.1 MG TABLET PO PRN
[2017-01-23] MEDS ORDERED: MIRALAX 17 GM POWD.PACK PO PRN
[2017-01-23] MEDS ORDERED: ACETAMINOPHEN 325 MG TABLET PO PRN
[2017-01-23] MEDS ORDERED: LOPERAMIDE HCL 2 MG CAPSULE PO PRN ×2
[2017-01-23] MEDS ORDERED: LORAZEPAM 2 MG/1 ML VIAL IM PRN
[2017-01-23] MEDS ORDERED: MAGNESIUM HYDROXIDE 30 ML LIQUID UDC PO PRN
[2017-01-23] MEDS ORDERED: THIAMINE HCL 200 MG/2 ML VIAL IM ONE
[2017-01-23] MEDS ORDERED: ONDANSETRON ODT 4 MG TAB.RAPDIS SL PRN
--- NOTE | 2017-01-23 00:10 | NUR ---
PRE-admission Pre-admission assessment performed in the intake department of [facility]. Pt appears mildly intoxicated and answers all questions appropriately. Vitals signs are B/P 142/87, HR 109, RR 18, O2 98%, T 98.0, pain 0/10. Pt has NKA. She has been using ETOH. Pt is stable. Admission to continue on the [facility] unit.
[2017-01-23 00:46] LABS: EOSINOPHILS % (AUTO) 0.3 % (0.0-7.0); HEMATOCRIT 51.9 % (37-47); HEMOGLOBIN 17.5 G/DL (12.0-16.0); LYMPHOCYTES # (AUTO) 1.9 K/UL (0.8-4.8); LYMPHOCYTES % (AUTO) 45.1 % (20.5-51.5); MEAN CORPUSCULAR HEMOGLOBIN 31.6 UUG (27.0-31.0); MEAN CORPUSCULAR HGB CONC 34 g/dL (32.0-37.0); MEAN CORPUSCULAR VOLUME 93.4 FL (81.0-99.0); MONOCYTES # (AUTO) 0.5 K/UL (0.1-1.30); MONOCYTES % (AUTO) 12.8 % (0.0-11.0); NEUTROPHILS # (AUTO) 1.7 K/UL (1.8-8.9); NEUTROPHILS % (AUTO) 40.8 % (38.5-71.5); PLATELET COUNT (AUTO) 236 K/UL (150-450); RED BLOOD CELL COUNT(AUTO) 5.55 MIL/UL (4.2-5.4); WHITE BLOOD COUNT (AUTO) 4.1 K/UL (4.0-11.2)
[2017-01-23 01:00] LABS: *URINE HCG, QUAL NEGATIVE (NEGATIVE)
[2017-01-23 01:06] LABS: *AMPHETAMINE, URINE NEGATIVE (NEGATIVE); *BARBITURATE, URINE NEGATIVE (NEGATIVE); *CANNABINOID, URINE NEGATIVE (NEGATIVE); *COCCAINE, URINE NEGATIVE (NEGATIVE); *OPIATE, URINE NEGATIVE (NEGATIVE); *PHENCYCLIDINE SCREEN,URINE NEGATIVE (NEGATIVE)
[2017-01-23 01:11] LABS: BILIRUBIN,TOTAL 0.6 mg/dL (0.2-1.0); MAGNESIUM 2.5 mg/dL (1.8-2.4); POTASSIUM 3.2 mmol/L (3.5-5.1); TOTAL PROTEIN, SERUM 9.7 g/dL (6.4-8.2)
[2017-01-23 01:22] LABS: THYROID STIMULATING HORMONE 2.652 mIU/mL (0.358-3.740)
[2017-01-23] MEDS ORDERED: POTASSIUM CHLORIDE 20 MEQ TAB.PRT.SR PO ONE (02:00)
--- NOTE | 2017-01-23 02:00 | NUR ---
ADMISSION Pt is a 52 yo female who arrived on the [facility] unit a 0033 on 01/23/17 for medically supervised detox. She is A&O and ambulatory with a steady gait. Body check performed by MACHINING AND ASSEMBLY SUPERVISOR and skin check performed by nurse. Pt appears mildly intoxicated and answers all question appropriately. She has NKA, is full code status, and on a regular diet. Pt has eaten poorly over the past 4 days. Vital signs in intake were B/P 142/87, HR 109, RR 18, O2 sat 98%, T 98.0, pain 0/10. Pt is 6'2" and weighs 182lb. She has a PMH of hypothyroid, h/o HPV, herniated discs w/surgical repair, anxiety, and depression. Lung sounds clear, PERRLA, brisk capillary refill, bowel sounds present, skin is intact. She denies seizure history. Per pt, LMP was 12/29/16. Last BM was 01/22/17. She denies SI/HI. History of Use 1) ETOH white wine 1500mL or cinnamon whiskey 500mL/day for the past 2 years. Last drank 1500mL 01/22/17. She has used ETOH for 22 years. 2) Opioid/[place] 10/325mg per day for the past 4 years. Last used 1 tab on 01/19/17. Treatment History 1) [facility] 07/2016 2) [facility] 07/2016 Pt does not smoke cigarettes. She decided to come to treatment because "I need to stop". She is observed with moist skin and mild tremors. Her longest period of sobriety was 10 years from age [age]. Symptoms when she doesn't use are tremors and sweating. CIWA on admission was 5. Dr Juarez saw patient on admission. Orders received. Pt is cooperative. She was educated regarding use of the call light and all questions answered. Bed is down with call light in reach.
--- NOTE | 2017-01-23 02:11 | NUR ---
Cony Grimes administered
--- NOTE | 2017-01-23 02:12 | NUR ---
PRN Ativan Pt has tremors, sweating, and anxiety. CIWA 6. PRN Ativan administered.
[2017-01-23] MEDS ORDERED: LORAZEPAM 1 MG TABLET ONE (02:18)
[2017-01-23] MEDS ORDERED: THIAMINE HCL 200 MG/2 ML VIAL ONE (02:18)
[2017-01-23] MEDS ORDERED: POTASSIUM CHLORIDE 20 MEQ TAB.PRT.SR ONE (02:18)
[2017-01-23] MEDS ORDERED: ONDANSETRON ODT 4 MG TAB.RAPDIS ONE (02:24)
--- NOTE | 2017-01-23 02:25 | NUR ---
PRN zofran Pt. reports nausea w/out vomiting. PRN zofran administered.
--- NOTE | 2017-01-23 03:12 | NUR ---
PRN Ativan reassessment PRN Ativan effective. Pt's CIWA reduced to 3.
--- NOTE | 2017-01-23 03:25 | NUR ---
PRN zofran reassessment PRN Zofran effective. Pt reports nausea is relieved.
[2017-01-23] MEDS ORDERED: TRAZ-144 PO (07:04)
[2017-01-23] MEDS ORDERED: ESCI20TA PO (07:04)
--- NOTE | 2017-01-23 07:08 | NUR ---
Start of Shift Endorsement received from nightshift nurse. Pt is a 52 y/o female admitted for alcohol and [place] dependence. Pt has been placed on a 5 day Ativan taper. Pt is tolerating the taper and mildly withdrawing AEB CIWA 4 at 0400. Pt reports sleeping 2hours and feeling very tired. PT presents with severe tremors. Pt has received PRN Ativan and Zofran. Full Code, VS WNL. . PT is alert and oriented x4. Pt is in STABLE condition at this time. Remains compliant with medication and diet regimen. All needs have been met, All safety measures in place per hospital policy. Bed in lowest position, side rails up x2, call-light within reach. Will continue to monitor
--- NOTE | 2017-01-23 07:15 | NUR ---
END OF SHIFT Pt admitted 01/23/17 at 0033 for ETOH dependence. She was experiencing withdrawal symptoms. PRN Ativan and Zofran administered. Potassium replaced. CIWA 4. She drank 855mL and slept for 2 hour.
[2017-01-23] MEDS: LEVOTHYROXINE SODIUM 137 MCG TABLET PO SCH (08:56)
[2017-01-23] MEDS: MULTIVITAMINS,THERAPEUTIC TABLET PO SCH (08:56)
[2017-01-23] MEDS: THIAMINE HCL 100 MG TABLET PO SCH (08:56)
[2017-01-23] MEDS: FOLIC ACID 1 MG TABLET PO SCH (08:56)
[2017-01-23] MEDS: LORAZEPAM 1 MG TABLET PO SCH ×4 (08:56→20:41)
[2017-01-23] MEDS ORDERED: TUBERCULIN,PURIF.PROT.DERIV. 5 TU/0.1 ML TEST ID ONE (09:00)
[2017-01-23] MEDS ORDERED: PATIENT MAY USE OWN MED- MD OK PO SCH ×2 (09:00)
[2017-01-23] MEDS: SPIRONOLACTONE 50 MG TABLET PO SCH (09:49)
[2017-01-23] MEDS ORDERED: LORAZEPAM 1 MG TABLET PO ONE ×2 (13:30→18:30)
[2017-01-23] MEDS ORDERED: LORAZEPAM 1 MG TABLET PO PRN ×4 (15:00)
--- NOTE | 2017-01-23 18:56 | NUR ---
End of Shift Endorsement given to nightshift nurse. Pt is a 52 y/o female admitted for alcohol and norco dependence. Pt has been placed on a 5 day Ativan taper. Pt is tolerating the taper and moderately withdrawing AEB CIWA 11 at 1600. Pt presents with severe tremors. PT has received Ativan 2mg x3 per Dr. Juarez to help with tremors. Pt is cooperative, reports feeling fatigued and weak. Pt did not participate in groups or activities however she did eat all her meals. Educated pt on importance of participating in groups. Encouraged pt to drink more fluids. Pt did not receive any PRN medications. Full Code, VS WNL. . PT is alert and oriented x4. Pt is in STABLE condition at this time. Remains compliant with medication and diet regimen. All needs have been met, All safety measures in place per hospital policy. Bed in lowest position, side rails up x2, call-light within reach. Will continue to monitor
--- NOTE | 2017-01-23 19:30 | NUR ---
START OF SHIFT Received report from day shift,Pt is a 52 y/o female admitted for alcohol and [place] dependency. Pt has been placed on a 5 day Ativan taper. Pt is tolerating the taper well.Last CIWA 11 at 1600. Pt presents with severe tremors. PT has received Ativan 2mg x3 per Dr. Juarez to help with tremors. Pt is cooperative and compliant with medications and care. Pt did not receive any PRN medications. Full Code, VS WNL. Pt received sleeping in bed,she was arousable on approach.Pt is alert and oriented x4. Pt is in stable condition at this time,no c/o pain or s/s of distress noted. All needs have been met, All safety measures in place per hospital policy. Bed in lowest position, side rails up x2, call-light within reach. Will continue to monitor
[2017-01-23] MEDS: GABAPENTIN 300 MG CAPSULE PO SCH (20:41)
--- NOTE | 2017-01-23 21:50 | NUR ---
PRN MOTRIN GIVEN FOR LEG PAIN.PAIN LEVEL=5/10.WILL MONITOR.
--- NOTE | 2017-01-23 22:50 | NUR ---
PRN EFFECTIVE.PAIN DECREASED TO 2/10.
[2017-01-24] VITALS: BP 138/97
[2017-01-24 04:00] VITALS: BP 126/93
--- NOTE | 2017-01-24 07:16 | NUR ---
END OF SHIFT Pt is a 52 y/o female admitted for alcohol and [place] dependency. Pt Ccontinues on a 5 day Ativan taper. Pt is tolerating the taper well.Last CIWA 5 at 0400. Pt is cooperative and compliant with medications and care. PRN Motrin was given for leg pain and was effective. Pt is alert and oriented x4. Pt is in stable condition at this time,she slept 8 hrs last night,fluid intake was 1050 mls,voided x 1. All needs have been met, All safety measures in place per hospital policy. Bed in lowest position, side rails up x2, call-light within reach. Will continue to monitor
[2017-01-24] MEDS: LEVOTHYROXINE SODIUM 137 MCG TABLET PO SCH (07:43)
--- NOTE | 2017-01-24 07:45 | NUR ---
BEGINNING OF SHIFT Patient endorsement report received from shiftman nurse, all pertinent information discussed. Patient is a 52 year old female with admitting Dx: etoh dependence. Patient currently with ongoing 5 day Ativan taper as ordered, currently on day 2 of taper, well tolerated, no ASE noted. Patient slept for 8 hours and received prn Motrin as per shiftman. Patient with last ciwa score of: 5. Patient received awake, alert and oriented x4, educated regarding plan of care for the day and medication regimen with good verbal understanding. Fall and seizure precautions observed. Safety m measures in place. will continue to monitor closely.
[2017-01-24 08:44] VITALS: BP 118/84
[2017-01-24] MEDS: GABAPENTIN 300 MG CAPSULE PO SCH ×2 (08:47→21:01)
[2017-01-24] MEDS: MULTIVITAMINS,THERAPEUTIC TABLET PO SCH (08:47)
[2017-01-24] MEDS: THIAMINE HCL 100 MG TABLET PO SCH (08:47)
[2017-01-24] MEDS: ESCITALOPRAM OXALATE 10 MG TABLET PO SCH (08:47)
[2017-01-24] MEDS: FOLIC ACID 1 MG TABLET PO SCH (08:47)
[2017-01-24] MEDS: SPIRONOLACTONE 50 MG TABLET PO SCH (08:47)
[2017-01-24] MEDS: LORAZEPAM 1 MG TABLET PO SCH ×3 (08:47→21:01)
[2017-01-24 13:59] VITALS: BP 140/89
[2017-01-24] MEDS ORDERED: LORAZEPAM 1 MG TABLET PO PRN ×2 (15:30)
[2017-01-24 17:14] VITALS: BP 125/92
--- NOTE | 2017-01-24 18:53 | NUR ---
END OF SHIFT Patient alert and oriented x4, vital signs stable during shift. Patient compliant with therapeutic plan of care. Patient with admitting Dx: ETOH dependence. Patient currently with ongoing 5 day Ativan taper, well tolerated, no ASE. 0900 assessment patient presented with: fine tremors, barely sweating, anxiety and mild head fullness with ciwa score of: 7; 1300 assessment patient presented with: fine tremors, barely sweating and moderate anxiety; 1700 assessment patient presented with: fine tremors, barely sweating, and moderate anxiety with ciwa score of: 7, During shift patient with elevated heart rate, MD aware. Patient was administered no PRN during shift. Patient denies any SI/HI. Encouraged to attend group therapies/sessions to learn new coping skills to prevent relapse.Encouraged adequate PO fluid intake as tolerated. Safety measures in place. Call light kept with in reach. All needs met and rendered. Patient endorsed to overnight cashier nurse, all pertinent information discussed.
--- NOTE | 2017-01-24 19:30 | NUR ---
START OF SHIFT Pt is a 52 y/o female admitted for alcohol and [place] dependency. Pt continues on a 5 day Ativan taper and is tolerating the taper well.Last CIWA 7 at 1600. Pt was having severe tremors but states that the tremors are getting mush less than before. Pt is cooperative and compliant with medications and care.Per day shift,Pt has been in bed most of the day.She is Full Code,on regular diet and NKA. Pt received resting in bed.Pt is alert and oriented x4. Pt is in stable condition at this time,no c/o pain or s/s of distress noted. All needs have been met, All safety measures in place per hospital policy. Bed in lowest position, side rails up x2, call-light within reach. Will continue to monitor
[2017-01-24 20:00] VITALS: BP 128/92
[2017-01-24] MEDS: MAG HYDROX/AL HYDROX/SIMETH 30 ML LIQUID UDC PO PRN (21:02)
--- NOTE | 2017-01-24 21:02 | NUR ---
PRN MYLANTA GIVEN FOR C/O HEARTBURN PER PT TEQUEST.WILL MONITOR FOR EFFECTIVENESS.
--- NOTE | 2017-01-24 22:02 | NUR ---
PRN EFFECTIVE.HEARTBURN RELIEVED PER PT..
[2017-01-25] VITALS: BP 108/75
[2017-01-25 04:00] VITALS: BP 116/75
--- NOTE | 2017-01-25 06:39 | NUR ---
END OF SHIFT Pt is a 52 y/o female admitted for alcohol and [place] dependency. Pt continues on a 5 day Ativan taper and is tolerating the taper well.Last CIWA 4 at 0400. Pt states that the tremors are getting mush less than before. Pt is cooperative and compliant with medications and care.She is Full Code,on regular diet and NKA.Pt is alert and oriented x4. PRN Mylanta was given for c/o heartburn and was helpful.Pt slept7 hours;still sleeping in bed;consumed 1735 mls of fluids,voided x 3;b/m x 3.No c/o pain or s/s of distress noted. All needs have been met, All safety measures in place per hospital policy. Bed in lowest position, side rails up x2, call-light within reach. Will continue to monitor Addendum: 01/25/17 at 0733 by KD ALBRECHT RN PT STATED SHE HAS LOOSE STOOLS WHEN SHE STOPS DRINKING AND THAT IS NORMAL FOR HER.PT WAS OFFERED IMODIUM TO HELP WITH LOOSE STOOLS BUT SHE REFUSED;SAID "IT WILL STOP ITSELF".PO FLUIDS ENCOURAGED. REPORTED TO DAY SHIFT NURSE.
[2017-01-25 07:07] LABS: HEPATITIS B SURFACE AG Negative (Negative)
[2017-01-25] MEDS: LEVOTHYROXINE SODIUM 137 MCG TABLET PO SCH (07:26)
--- NOTE | 2017-01-25 07:26 | NUR ---
BEGINNING OF SHIFT Patient endorsement report received from paper rewinder operator nurse, all pertinent information discussed. Patient is a 52 year old female with admitting Dx: etoh dependence. Patient currently with ongoing 5 day Ativan taper as ordered, currently on day 3 of taper, well tolerated, no ASE noted. Patient slept for 7 hours and received prn Mylanta as per paper rewinder operator. Patient with last ciwa score of: 4. Patient received awake, alert and oriented x4, educated regarding plan of care for the day and medication regimen with good verbal understanding. Fall and seizure precautions observed. Safety measures in place. will continue to monitor closely.
[2017-01-25 08:09] LABS: CREATININE 1.1 mg/dL (0.6-1.3); MAGNESIUM 2.1 mg/dL (1.8-2.4); PHOSPHOROUS 2.9 mg/dL (2.5-4.9); POTASSIUM 3.4 mmol/L (3.5-5.1)
[2017-01-25 08:24] VITALS: BP 120/85
[2017-01-25] MEDS: MULTIVITAMINS,THERAPEUTIC TABLET PO SCH (08:42)
[2017-01-25] MEDS: GABAPENTIN 300 MG CAPSULE PO SCH ×3 (08:42→21:54)
[2017-01-25] MEDS: FOLIC ACID 1 MG TABLET PO SCH (08:42)
[2017-01-25] MEDS: THIAMINE HCL 100 MG TABLET PO SCH (08:42)
[2017-01-25] MEDS: LORAZEPAM 1 MG TABLET PO SCH ×4 (08:43→21:54)
[2017-01-25] MEDS: ESCITALOPRAM OXALATE 10 MG TABLET PO SCH (08:43)
[2017-01-25] MEDS: SPIRONOLACTONE 50 MG TABLET PO SCH (08:43)
[2017-01-25 12:00] VITALS: BP 121/85
--- NOTE | 2017-01-25 12:30 | NUR ---
MD COMMUNICATION Notified Dr. Juarez of patients blood results including potassium level of 3.4. Md aware, will input new orders.
[2017-01-25] MEDS ORDERED: POTASSIUM CHLORIDE 20 MEQ TAB.PRT.SR PO ONE (13:00)
[2017-01-25 16:40] VITALS: BP 122/90
--- NOTE | 2017-01-25 18:55 | NUR ---
END OF SHIFT Patient alert and oriented x4, vital signs stable during shift. Patient compliant with therapeutic plan of care. Patient with admitting Dx: ETOH dependence. Patient currently with ongoing 5 day Ativan taper, well tolerated, no ASE.Patient currently on day 3 of taper. 0900 assessment patient presented with: fine tremors, barely sweating, and anxiety with ciwa score of: 6; 1300 assessment patient presented with: fine tremors, and mild anxiety with ciwa score of: 3; 1700 assessment patient presented with: fine tremors, mild anxiety with ciwa score of: 3. Potassium replaced as ordered. Patient was administered no PRN during shift. Patient denies any SI/HI. Encouraged to attend group therapies/sessions to learn new coping skills to prevent relapse, but preferred to stay in room, despite much encouragement. Encouraged adequate PO fluid intake as tolerated. Safety measures in place. Call light kept with in reach. All needs met and rendered. Patient endorsed to shift supervisor melting nurse, all pertinent information discussed.
[2017-01-25 20:00] VITALS: BP 108/74
--- NOTE | 2017-01-25 20:00 | NUR ---
Start of Shift Note: Report received from day shift nurse. Pt is a 52 y/o female admitted on 01/22/17 for medically-supervised withdrawal from ETOH. Pt reports drinking either 1500ml wine or 500ml whiskey daily for 2 years; pt also takes [place] 10mg daily for 4 years. Pt is on a 5-day Ativan taper. Pt received with last CIWA=3, and no PRN's were given during day shift. Pt is a full code, reports NKDA/NKFA, and is on a regular diet. PMHx: anxiety, depression, hypothyroid, herniated disk with surgical repair. Pt received in room and reports anxiety; pt is noted to be guarded and withdrawn to room. Bed is in low position and locked, side rails up x2, call light is within reach. Will continue to monitor.
[2017-01-25] MEDS: TRAZODONE 50 MG TABLET PO PRN (21:54)
--- NOTE | 2017-01-25 21:54 | NUR ---
PRN Trazodone: Pt c/o inability to sleep. Administered PRN Trazodone as ordered. Will reassess at end of shift.
--- NOTE | 2017-01-26 | NUR ---
V/S Refused, CIWA Deferred: Pt refuses 00:00 V/S. CIWA is deferred for sleep. All safety precautions are in place. Will continue to monitor. Addendum: 01/26/17 at 0256 by CHET WALTER RN Amended: Links added.
--- NOTE | 2017-01-26 04:00 | NUR ---
Vitals Refused, CIWA Deferred: Patient refuses 04:00 vital signs. Pt educated on risks and benefits but still refused. CIWA assessment is deferred for sleep. All safety precautions are in place. Will continue to monitor. Addendum: 01/26/17 at 0554 by CHET WALTER RN Amended: Links added.
[2017-01-26] MEDS: LEVOTHYROXINE SODIUM 137 MCG TABLET PO SCH (06:59)
--- NOTE | 2017-01-26 07:03 | NUR ---
End of Shift Note: Pt is a 52 y/o female admitted to [facility] on 01/22/17 for medically-supervised withdrawal from ETOH. Pt reported a PMHx of anxiety, depression, hypothyroid, and herniated disk with surgical repair. Pt is a full code. Pt reports NKDA/NKFA. Pt is on a regular diet. Pt reported drinking either 1500ml wine or 500ml whiskey daily for 2 years; pt also takes [place] 10mg daily for 4 years. Pt continues on a 5-day Ativan taper. Scheduled medication regime managed s/s of withdrawal this shift. Last CIWA=2 at 20:00. V/S stable throughout shift. Total fluid intake this shift: 750 ml; output: urine x 2 and BM x 0. PRN Trazodone was given for insomnia, which was effective and slept 10 hours this shift. Pt is currently in bed, all needs have been attended and met. Pt endorsed to day shift nurse.
[2017-01-26 08:00] VITALS: BP 120/86
[2017-01-26] MEDS: ESCITALOPRAM OXALATE 10 MG TABLET PO SCH (08:38)
[2017-01-26] MEDS: GABAPENTIN 300 MG CAPSULE PO SCH ×3 (08:38→20:10)
[2017-01-26] MEDS: MULTIVITAMINS,THERAPEUTIC TABLET PO SCH (08:39)
[2017-01-26] MEDS: SPIRONOLACTONE 50 MG TABLET PO SCH (08:39)
[2017-01-26] MEDS: LORAZEPAM 1 MG TABLET PO SCH ×2 (08:39→20:13)
[2017-01-26] MEDS: THIAMINE HCL 100 MG TABLET PO SCH (08:39)
[2017-01-26] MEDS: FOLIC ACID 1 MG TABLET PO SCH (08:48)
[2017-01-26] MEDS ORDERED: LORAZEPAM 1 MG TABLET PO SCH (09:00)
--- NOTE | 2017-01-26 10:00 | NUR ---
START OF SHIFT Received report from senior sales representative nurse. Patient is 52 year old female admitted for medically supervised withdrawal from alcohol. Patient is full code with NKA. On assessment this AM: CIWA: 1. Denies SOB, chest pain. Vitals signs WNL. Reports mild anxiety. Patient on 5 day Ativan taper. Med compliant. No PRN given at this time. Patient was encouraged to attend group meetings today. Will continue to monitor patient.
[2017-01-26 12:00] VITALS: BP 104/61
[2017-01-26 16:00] VITALS: BP 122/84
--- NOTE | 2017-01-26 19:00 | NUR ---
END OF SHIFT Patient is 52 year old female admitted for medically supervised withdrawal from alcohol. Patient is full code with NKA. Most recent CIWA: 1 Compliant with routine meds during this shift. Patient tolerating meals without n/v. coldfusioncnc machinist 2nd shift will continue to monitor patient.
[2017-01-26 20:00] VITALS: BP 113/84
--- NOTE | 2017-01-26 20:00 | NUR ---
Start of Shift Note: Report received from day shift nurse. Pt is a 52F admitted on 01/22/17 for medically-supervised withdrawal from ETOH. Pt reports drinking either 1500ml wine or 500ml whiskey daily x 2 yrs; pt also takes 1 tablet [place] 10/325 mg x 4 yrs. Pt continues on a 5-day Ativan taper. Pt received with last CIWA=1, and no PRN's were administered during day shift. Pt is a full code. Pt reports NKDA/NKFA. Pt is on a regular diet. PMHx: anxiety, depression, herniated disk with surgical repair, hypothyroid. Pt received in room and reports anxiety. Bed is in low position and locked, side rails up x2, call light is within reach. Will continue to monitor.
[2017-01-26] MEDS: TRAZODONE 50 MG TABLET PO PRN (20:14)
--- NOTE | 2017-01-26 20:14 | NUR ---
PRN Trazodone: Pt c/o inability to sleep. Administered PRN Trazodone as ordered. Will reassess at end of shift.
--- NOTE | 2017-01-27 | NUR ---
V/S Refused, CIWA Deferred: Pt refuses 00:00 vital signs. Pt educated on risks and benefits but still refused. CIWA is deferred for sleep. All safety precautions are in place. Will continue to monitor. Addendum: 01/27/17 at 0302 by CHET WALTER RN Amended: Links added.
--- NOTE | 2017-01-27 04:00 | NUR ---
Vital Signs Refused, CIWA Deferred: Patient refuses 04:00 vital signs assessment. Patient educated on risks and benefits but still refused. CIWA is deferred for sleep. Addendum: 01/27/17 at 0510 by CHET WALTER RN Amended: Links added.
[2017-01-27] MEDS: LEVOTHYROXINE SODIUM 137 MCG TABLET PO SCH (06:48)
--- NOTE | 2017-01-27 06:53 | NUR ---
End of Shift Note: Pt is a 52F admitted to [facility] on 01/22/17 for medically-supervised withdrawal from ETOH. Pt is a full code. Pt reports NKDA/NKFA. Pt is on a regular diet. Pt reports a PMHx of anxiety, depression, herniated disk with surgical repair, and hypothyroid. Pt reported drinking either 1500ml wine or 500ml whiskey daily x 2 yrs and was placed on a 5-day Ativan taper. Scheduled medication regime effectively managed s/s of withdrawal this shift. Last CIWA=2 at 20:00. V/S stable throughout shift. Total fluid intake this shift: 2860 ml; output: urine x 3 and BM x 0. PRN Trazodone was given for insomnia, which was effective and slept 7 hours this shift. Pt is currently in bed, all needs have been attended and met. Pt endorsed to day shift nurse.
--- NOTE | 2017-01-27 07:49 | NUR ---
START OF SHIFT NOTE 52F admitted on 01/22/17. Dx ETOH dependence. Pt is a full code, NKDA/NKFA. on regular diet. Hx anxiety, depression, herniated disk with surgical repair, and hypothyroid. On a 5-day Ativan taper on day 5. Received report from night nurse. Patient ambulating in [place], gait stable, and about to take a shower. A+Ox 4. Slight tremor in hands. Pain 1/10 in left shoulder due to history of cervical disc disease but states she does not need any PRN pain medication. States anxiety 3/7 due to situation of best friend being discharged from a SNF and she states she needs to go home to take care of him. Encouraged Pt to focus on her recovery at this time. States she goes to AA 5 times a week. States she will speak with doctor about going home today. Pt not requesting PRN medication for anxiety but will offer PRN medication for anxiety with am medications at 0800. Denies nausea or diarrhea. Pupils 2 mm and sluggish. Bed in low position. Call light in reach. Will continue to monitor.
[2017-01-27 08:00] VITALS: BP 124/82
[2017-01-27] MEDS ORDERED: LORAZEPAM 1 MG TABLET PO SCH ×2 (09:00)
[2017-01-27] MEDS: GABAPENTIN 300 MG CAPSULE PO SCH ×3 (09:00→20:40)
--- NOTE | 2017-01-27 09:00 | NUR ---
Patient started on Subutex. Addendum: 01/27/17 at 1105 by AYALA MELTON RN Amended: Links added. Addendum: 01/27/17 at 2637 by AYALA MELTON RN Entered on wrong patient.
--- NOTE | 2017-01-27 09:00 | NUR ---
MEDICATION REFUSAL Pt refused Gabapentin and Ativan 0900 doses. Pt states she wants to go home today. Dr. Juarez notified.
[2017-01-27] MEDS: SPIRONOLACTONE 50 MG TABLET PO SCH (09:33)
[2017-01-27] MEDS: THIAMINE HCL 100 MG TABLET PO SCH (09:33)
[2017-01-27] MEDS: MULTIVITAMINS,THERAPEUTIC TABLET PO SCH (09:35)
[2017-01-27] MEDS: FOLIC ACID 1 MG TABLET PO SCH (09:35)
[2017-01-27] MEDS: ESCITALOPRAM OXALATE 10 MG TABLET PO SCH (09:35)
[2017-01-27] MEDS ORDERED: Levothyroxine Sodium PO (11:09)
[2017-01-27] MEDS ORDERED: ACAM333T8 PO (11:09)
[2017-01-27] MEDS ORDERED: TRAZ-144 PO (11:09)
[2017-01-27] MEDS ORDERED: HYDR-3895 PO (11:09)
[2017-01-27] MEDS ORDERED: GABA-534 PO ×2 (11:09)
[2017-01-27] MEDS ORDERED: ESCI10TA PO (11:09)
[2017-01-27 12:00] VITALS: BP 115/75
--- NOTE | 2017-01-27 14:43 | NUR ---
MEDICATION REFUSAL Pt refused scheduled 1500 dose Gabapentin.
[2017-01-27 16:00] VITALS: BP 123/77
[2017-01-27] MEDS: MAG HYDROX/AL HYDROX/SIMETH 30 ML LIQUID UDC PO PRN (17:39)
--- NOTE | 2017-01-27 17:42 | NUR ---
PRN MEDICATION ADMINISTRATION Given Mylanta for acid reflux symptom.
--- NOTE | 2017-01-27 18:45 | NUR ---
Reassessment Pt states that the medication was ineffective. Dr Juarez notified, awaiting reply.
--- NOTE | 2017-01-27 19:24 | NUR ---
MD communication Pt states that she wants prilosec, d/t maalox being ineffective. Dr Juarez notified, ordered protonix 40mg POx1 now. Orders entered, unable to enter orders.
[2017-01-27] MEDS ORDERED: PANTOPRAZOLE SODIUM 40 MG TABLET.DR PO ONE (19:30)
--- NOTE | 2017-01-27 19:45 | NUR ---
START OF SHIFT Received report from day shift nurse. Pt is in her room watching TV. She is a 52 yo female admitted to [facility] on 01/23 for ETOH Dependence. She is A&O x4 and ambulatory. NKA, full code status, and on a regular diet. She has a PMH of hypothyroidism, h/o HPV, herniated discs with surgical repair, anxiety, and depression. On admission she reported using wine 1500mL per day or whiskey 500mL per day and [place] 10-325mg/day. Pt completed an Ativan taper and is scheduled for discharge tomorrow. She is observed to have mild hand tremors. She reports mild headache and acid indigestion. Minimal other s/s of withdrawal. Fall and seizure precautions in place. Bed is down with call light in reach.
[2017-01-27 20:00] VITALS: BP 128/95
[2017-01-27] MEDS: TRAZODONE 50 MG TABLET PO PRN (20:40)
--- NOTE | 2017-01-27 20:41 | NUR ---
PRN Trazodone Pt reports inability to sleep. PRN Trazodone administered.
--- NOTE | 2017-01-27 21:41 | NUR ---
PRN Trazodone reassessment PRN Trazodone effective. Pt is lying in bed resting with eyes closed. Respirations even and unlabored. Safety measures in place.
--- NOTE | 2017-01-28 | NUR ---
0000 Vitals refused/CIWA deferred Pt refused to be woken for 0000 vitals. She is lying in bed resting with eyes closed. Respirations even and unlabored. CIWA ordered Q4HWA. Bed is down with call light in reach.
--- NOTE | 2017-01-28 04:00 | NUR ---
0400 Vitals refused/CIWA deferred Pt refused to be woken for 0400 vitals. She is lying in bed resting with eyes closed. Respirations even and unlabored. CIWA ordered Q4HWA. Bed is down with call light in reach.
[2017-01-28] MEDS: LEVOTHYROXINE SODIUM 137 MCG TABLET PO SCH (06:52)
--- NOTE | 2017-01-28 07:18 | NUR ---
END OF SHIFT Report provided to day shift nurse. Pt is lying in bed resting. She is a 52 yo female admitted to [facility] on 01/23 for ETOH Dependence. She is A&O and ambulatory. NKA, full code status, and on a regular diet. She has a PMH of hypothyroidism, h/o HPV, herniated discs with surgical repair, anxiety, and depression. Upon admission she admitted to using wine 1500mL per day or whiskey 500mL per day and [place] 10-325mg/day. Ativan taper completed and she is scheduled for discharge today. Pt had mild hand tremors before bed. Last CIWA was 3. PRN Trazodone administered for sleep. She drank 950mL, voided x2, and slept for 6 hours. Fall and seizure precautions in place. Bed is down with call light in reach.
--- NOTE | 2017-01-28 07:36 | NUR ---
BEGINNING OF SHIFT Patient endorsement report received from can stacker nurse, all pertinent information discussed. Patient is a 52 year old female with admitting Dx: etoh dependence. Patient completed 5 day Ativan taper as ordered, well tolerated, no ASE noted, patient is scheduled to be discharged today, noted self motivated towards sobriety. Patient slept for 7 hours and received prn: Toradol, Benadryl, Dulcolax, Vistaril and Excedrin as ordered, per can stacker medications were effective. Patient with last ciwa score of: 5. Patient received awake, alert and oriented x4, educated regarding plan of care for the day and medication regimen with good verbal understanding. Fall and seizure precautions observed. Safety measures in place. will continue to monitor closely.
[2017-01-28 08:03] VITALS: BP 121/90
[2017-01-28] MEDS: GABAPENTIN 300 MG CAPSULE PO SCH (08:33)
[2017-01-28] MEDS: FOLIC ACID 1 MG TABLET PO SCH (08:33)
[2017-01-28] MEDS: ESCITALOPRAM OXALATE 10 MG TABLET PO SCH (08:33)
[2017-01-28] MEDS: THIAMINE HCL 100 MG TABLET PO SCH (08:33)
[2017-01-28] MEDS: SPIRONOLACTONE 50 MG TABLET PO SCH (08:33)
[2017-01-28] MEDS: MULTIVITAMINS,THERAPEUTIC TABLET PO SCH (08:33)
--- NOTE | 2017-01-28 09:55 | NUR ---
DISCHARGE Patient off the unit at 0955, prior to discharge patient was educated and provided with teaching regarding all discharge instructions with good verbal understanding. Patient discharged to able to change in stable condition, vital signs were stable. patient with no s/sx of withdrawal, last ciwa score of: 0. Patient noted self motivated towards sobriety. All scheduled due medications were administered as ordered, prior to discharge, well tolerated. discharge instructions, and prescriptions were placed in personal duffel bag. patient off the unit at 0955.
== END 2017-01-28 09:55 | disposition home or self-care (01) | DRG 895 ==
LOC: SRC 23:21
PROVIDERS: ADMIT Internal Medicine; ATTEND Internal Medicine
PROC: HZ2ZZZZ Detoxification Services for Substance Abuse Treatment (ICD-10-PCS; principal; 2017-01-22)
PROC: HZ31ZZZ Individual Counseling for Substance Abuse Treatment, Behavioral (ICD-10-PCS; 2017-01-26)
PROC: HZ41ZZZ Group Counseling for Substance Abuse Treatment, Behavioral (ICD-10-PCS; 2017-01-27)
DX: F10.230 Alcohol dependence with withdrawal, uncomplicated (principal); I15.9 Secondary hypertension, unspecified; K70.10 Alcoholic hepatitis without ascites; F33.1 Major depressive disorder, recurrent, moderate; Y90.9 Presence of alcohol in blood, level not specified; G47.00 Insomnia, unspecified; E87.6 Hypokalemia; F41.9 Anxiety disorder, unspecified; Z81.1 Family history of alcohol abuse and dependence; E03.9 Hypothyroidism, unspecified; F11.90 Opioid use, unspecified, uncomplicated; M50.90 Cervical disc disorder, unspecified, unspecified cervical region; R73.9 Hyperglycemia, unspecified; G89.29 Other chronic pain; F10.229 Alcohol dependence with intoxication, unspecified
CPT/HCPCS: 36415; 70030-TC; 80307; 83690; 83735; 84100; 84443; 84703; 85025; 86592; 86705; 86803; 87340; 87806; G0480; J3411; Q0162